=== PATIENT | female | born 1965 | race Caucasian/White ===

== ENCOUNTER → 2016-12-02 | Outpatient (CLI) | payer OTHER ==
--- NOTE | 2016-12-02 10:56 | US ---
Ultrasound right Breast History: Nodular abnormality in right breast upper-outer quadrant on recent mammogram. Technique: Ultrasound imaging of the upper outer quadrant of the right breast from the 9 to the 12 o' clock position was performed by the bomb squad officer and me. Findings: In the upper outer quadrant of the right breast there are multiple simple cysts. 2 larger c ysts correspond to the mammogram findings. The largest at 9:00 position 5 cm from the nipple measurin g 3.2 x 3.3 x 1.3 cm. In the right breast 9:00 position 6 cm from nipple there is a 1.5 x 1.3 x 0.7 c m simple cyst. Also in the upper outer quadrant there are multiple additional subcentimeter simple cy sts. Impression: 1. BI-RADS 2: Benign findings right breast. 2. Multiple simple cysts upper outer quadrant right breast. 3. Recommend annual screening mammograms with next mammogram in October 2017. Findings and recommendations have been discussed with the patient who agrees with the plan.
--- NOTE | 2016-12-02 15:08 | US ---
Complete Pelvic Sonography (Transabdominal and Endovaginal) CLINICAL HISTORY: 51-year-old female who had an unusual left ovarian macrocalcification seen on a jaki or CT scan of the pelvis in November 2011. The patient has episodic flank pain. ICD 10 Diagnostic Code: R10.9. LMP: November 16, 2016. TECHNIQUE: Initially, curvilinear 5 mHz transducer was used to sonographically evaluate the pelvis, u sing a full urinary bladder as a window. To better assess the uterine architecture and the adnexal st ructures, endovaginal pelvic sonography was also performed. Color and spectral Doppler was used. COMPARISON STUDY: CT scan of the pelvis, dated 11/21/2011. FINDINGS: Transabdominal Pelvic Sonography: The uterus is normal in size, shape, and position, measuring 7.2 x 4.5 x 3.0 cm. The right and left adnexal regions are suboptimally assessed because of overlying bowel gas. There is no free fluid. Endovaginal Pelvic Sonography: The endometrium is normal in thickness, measuring 7 mm. There is no fo mari myometrial abnormality. The right ovary measures 2.5 x 2.1 x 3.6 cm, and there is a complex hypoe choic heterogeneous-appearing hemorrhagic follicular cyst measuring 1.1 x 1.8 x 1.9 cm. The left ovar y measures 2.9 x 1.8 x 2.5 cm, and contains an anechoic simple-appearing follicular cyst measuring 1. 5 x 1.3 x 1.6 cm There is also a stable appearing 0.8 x 0.5 x 0.6 cm echogenic calcification with aco ustic shadowing. Intraovarian vascular flow is documented on each side with a resistive index in the left ovary measuring 0.66, and in the right ovary measuring 0.43. There is a small amount of free flu id in the right adnexal region and posterior cul-de-sac. IMPRESSION: There is a complex hemorrhagic follicular cyst associated with the right ovary measurin g 1.9 cm in diameter, and a simple-appearing 1.6 cm follicular cyst associated with the left ovary, a s well as a stable appearing 8 mm macrocalcification associated with the left ovary, unchanged from 2 012. There is no evidence of torsion, although there is a small amount of free fluid in the right adn exal region and posterior cul-de-sac. Consider follow up reevaluation of the right ovary at a different point in a future menstrual cycle i n the next 8 to 12 weeks.
== END ==
LOC: FIMAGING 09:01
PROVIDERS: ATTEND Internal Medicine
DX: N83.01 Follicular cyst of right ovary (principal); N83.292 Other ovarian cyst, left side; N60.11 Diffuse cystic mastopathy of right breast